=== PATIENT | female | born 1945 | race Caucasian/White ===

== ENCOUNTER 2022-02-24 07:55 | Day surgery (SDC) | payer BC ==
[~2022-02-24] VITALS: Ht 152.4 cm; Wt 52.6 kg
[2022-02-24] MEDS ORDERED: MIDAZOLAM HCL 5 MG/5 ML VIAL ONE (09:21)
[2022-02-24] MEDS ORDERED: fentaNYL CITRATE/PF 100 MCG/2 ML AMP ONE (09:21)
[2022-02-24] MEDS ORDERED: LIDOCAINE 2% JELLY UROJECT 10 ML MM ONE (09:21)
[2022-02-24] MEDS ORDERED: LIDOCAINE MPF 2% 20 MG/1 ML, 5 ML VIAL INH ONE ×3 (09:22→09:42)
[2022-02-24] MEDS ORDERED: IPRATROPIUM/ALBUTEROL SULFATE 3 ML AMPUL.NEB (DUONEB) INH ONE (10:00)
[2022-02-24 12:34] VITALS: BP_SYST 99
== END 2022-02-24 11:50 | disposition home or self-care (01) ==
LOC: SDS 07:55 → SMU 07:56 → SDS 11:50
PROVIDERS: ATTEND Internal Medicine Critical Care Medicine
DX: J47.9 Bronchiectasis, uncomplicated (principal); R91.1 Solitary pulmonary nodule; Z88.0 Allergy status to penicillin; Z88.8 Allergy status to other drugs, medicaments and biological substances; Z20.822 Contact with and (suspected) exposure to COVID-19
CPT/HCPCS: 36415; 31624; 87070; 87205; 94640; 87116; 87101; 88108; 88305; U0003; G0378; J2250; J3010